=== PATIENT | female | born 1940 | race Caucasian/White ===

== ENCOUNTER → 2017-01-10 | Outpatient (CLI) | payer MEDICARE, OTHER ==
[~2017-01-10] MED LIST: ASPIRIN 81M81 MG/TA2 PO; BETIMOL 0.5% OPH5 ML OU; CALCIUM 6001 TA1 PO; CRANBERRY450 MG PO; EXCEDRIN PM PO; FERROUS SU325 MG/TAB PO; FOLIC ACID 40400 MCG PO; GLUCOSAMINE & C1 CA2 PO; GOOD NEIGHBOR500 M6 PO; LEVOXYL0.025 MG PO; LIPITOR20 MG PO; LOVAZA1 GM PO; MAGIMIN-FORTE250 MG PO; MASON NATURAL1200 MG PO; MULTI VITAMINS1 TAB PO; PRILOSEC 20MG20 MG PO; RESTASIS 60VL; VITAMIN C500 MG PO; ZESTRIL 10MG10 MG PO; ZYRTEC 10MG10 MG PO
== END ==
LOC: MC.RAD 11:40
DX: Z12.31 Encounter for screening mammogram for malignant neoplasm of breast (principal)

== ENCOUNTER 2018-06-26 03:59 | Emergency (ER) | payer MEDICARE, OTHER ==
[~2018-06-26] VITALS: Ht 170.2 cm; Wt 76.4 kg
[~2018-06-26 03:59] MED LIST changes: +CALCIUM 600 PLU1 TAB PO; -CALCIUM 6001 TA1 PO
[2018-06-26 04:02] VITALS: TEMP 97.6
[2018-06-26 04:38] LABS: BASO # 0.1 (0.0-0.2); EOS # 0.3 (0.0-0.7); EOS % 4.6 % (0-4.0); GRAN # 4.5 (1.4-6.5); GRAN % 60.8 % (42.2-75.2); HEMOGLOBIN 14.9 g/dl (12.5-16.0); LYMPH # 1.9 (1.2-3.4); LYMPH % 25.3 % (20.0-51.0); MEAN CELL VOLUME 91 fl (80.0-100.0); MEAN CORPUSCULAR HEMOGLOBIN 31 pg (27.0-31.0); MEAN CORPUSCULAR HGB CONC 34 g/dl (33.0-37.0); MEAN PLATELET VOLUME 10.3 fl (7.4-10.4); MONO # 0.6 (0.1-0.6); PLATELET COUNT 197 K/mm3 (130-400); RED BLOOD COUNT 4.85 M/mm3 (4.10-5.30)
[2018-06-26 04:52] LABS: ALANINE AMINOTRANSFERASE 37 U/L (9-52); ALKALINE PHOSPHATASE 84 U/L (50-136); ANION GAP 11 mmol/L (7-16); AST,SGOT 35 U/L (15-37); BILIRUBIN,TOTAL 0.4 mg/dL (0.0-1.0); BLOOD UREA NITROGEN 16 mg/dL (7-17); CALCIUM 9.7 mg/dL (8.4-10.2); CARBON DIOXIDE 28 mmol/L (22-30); CHLORIDE 100 mmol/L (98-107); CREATININE, serum 0.88 mg/dL (0.52-1.25); GLUCOSE 111 mg/dL (74-106); LIPASE 138 U/L (23-300); POTASSIUM 4.2 mmol/L (3.4-5.0); SODIUM 138 mmol/L (137-145); TOTAL PROTEIN 7.1 gm/dL (6.4-8.2)
[2018-06-26 04:56] LABS: INR 0.9 (0.8-3.0); PROTHROMBIN TIME 9.8 SECONDS (9.7-12.8)
[2018-06-26 05:06] LABS: TROPONIN-I < 0.012 ng/mL (0.000-0.034)
[2018-06-26] MEDS ORDERED: NATURAL MAGNES200 MG (05:47)
[2018-06-26] MEDS ORDERED: TIROSINT25 MC1 PO (05:48)
[2018-06-26] MEDS ORDERED: SINGULAIR 110 MG/TAB PO (05:49)
[2018-06-26] MEDS ORDERED: ZYRTEC5 MG (05:49)
[2018-06-26 06:09] VITALS: BP 116/87
[2018-06-26 10:09] VITALS: PULSE 57
== END 2018-06-26 10:09 | disposition home or self-care (01) ==
LOC: COL.ER 03:59
PROVIDERS: Emergency Medicine
DX: R10.11 Right upper quadrant pain (principal); Z79.82 Long term (current) use of aspirin
CPT/HCPCS: J7030; Q9967

== ENCOUNTER → 2019-01-22 | Outpatient (CLI) | payer MEDICARE, OTHER ==
[~2019-01-22] MED LIST changes: +NATURAL MAGNES200 MG; +SINGULAIR 110 MG/TAB PO; +TIROSINT25 MC1 PO; +ZYRTEC5 MG
== END ==
LOC: MC.RAD 09:06
DX: Z12.31 Encounter for screening mammogram for malignant neoplasm of breast (principal)

== ENCOUNTER → 2019-08-02 | Outpatient (CLI) | payer MEDICARE, OTHER ==
[2019-08-02 09:07] LABS: BASO # 0.1 (0.0-0.2); BASO % 1.2 % (0.0-2.0); EOS # 0.3 (0.0-0.7); EOS % 5.8 % (0-4.0); GRAN % 61.7 % (42.2-75.2); HEMATOCRIT 43.1 % (37.0-47.0); HEMOGLOBIN 13.9 g/dl (12.5-16.0); LYMPH # 1.2 (1.2-3.4); LYMPH % 24.9 % (20.0-51.0); MEAN CELL VOLUME 93 fl (80.0-100.0); MEAN CORPUSCULAR HEMOGLOBIN 30 pg (27.0-31.0); MEAN CORPUSCULAR HGB CONC 32 g/dl (33.0-37.0); MEAN PLATELET VOLUME 10.4 fl (7.4-10.4); MONO # 0.3 (0.1-0.6); MONO % 6.2 % (1.7-9.3); PLATELET COUNT 209 K/mm3 (130-400); RED BLOOD COUNT 4.64 M/mm3 (4.10-5.30); REDCELL DISTRIBUTION WIDTH-CV 13.6 % (11.5-14.5)
[2019-08-02 09:16] LABS: ALBUMIN 4.3 gm/dL (3.5-5.0); BILIRUBIN,TOTAL 0.4 mg/dL (0.0-1.0); CALCIUM 10.1 mg/dL (8.4-10.2); CREATININE, serum 0.88 (0.52-1.25); POTASSIUM 4.1 mmol/L (3.4-5.0); TOTAL PROTEIN 7.1 gm/dL (6.4-8.2)
== END ==
LOC: COL.LAB 08:34
PROVIDERS: Nurse Practitioner
DX: A04.72 Enterocolitis due to Clostridium difficile, not specified as recurrent (principal); N39.0 Urinary tract infection, site not specified

== ENCOUNTER → 2019-08-08 | Outpatient (CLI) | payer MEDICARE, OTHER | LOC: COL.RAD 08:19 → COL.LAB 08:19 → COL.RAD 08:30 | DX: Z01.812 Encounter for preprocedural laboratory examination (principal); A04.72 Enterocolitis due to Clostridium difficile, not specified as recurrent; J84.9 Interstitial pulmonary disease, unspecified; R91.8 Other nonspecific abnormal finding of lung field; R10.9 Unspecified abdominal pain; R19.7 Diarrhea, unspecified | CPT/HCPCS: Q9967 ==

== ENCOUNTER 2020-04-23 15:38 | Outpatient (CLI) | payer MEDICARE, OTHER ==
[~2020-04-23] VITALS: Ht 170.2 cm; Wt 74.6 kg
[2020-04-23 16:23] VITALS: BP 102/52; PULSE 51; TEMP 98.1
== END 2020-04-23 16:45 | disposition home or self-care (01) ==
LOC: EUO 15:38
DX: M81.0 Age-related osteoporosis without current pathological fracture (principal)
CPT/HCPCS: J3489

== ENCOUNTER 2021-02-12 08:30 | Day surgery (SDC) | payer MEDICARE, OTHER ==
[2021-02-12] VITALS (12 sets, daily range): BP systolic 119–150; BP diastolic 48–78; PULSE 48–72; TEMP 97.8
[~2021-02-12] VITALS: Ht 170.3 cm; Wt 69.4 kg
[2021-02-12] MEDS ORDERED: VITAMIN D31000 I1 PO (08:47)
[2021-02-12] MEDS ORDERED: NATURAL POTASS595 MG PO (08:47)
[2021-02-12] MEDS ORDERED: MULTIPLE VITAMI1 TA5 PO (08:48)
[2021-02-12] MEDS ORDERED: 00186-0372-20 IH (08:49)
[2021-02-12] MEDS ORDERED: FLONASE NASAL S16 GM NS (08:50)
[2021-02-12] MEDS ORDERED: TYLENOL PM EXTR1 TA1 PO (08:51)
[2021-02-12 09:13] LABS: HEMATOCRIT 38.8 % (37.0-47.0); HEMOGLOBIN 12.9 g/dl (12.5-16.0); MEAN CELL VOLUME 90 fl (80.0-100.0); MEAN CORPUSCULAR HEMOGLOBIN 30 pg (27.0-31.0); MEAN CORPUSCULAR HGB CONC 33 g/dl (33.0-37.0); PLATELET COUNT 218 K/mm3 (130-400); RED BLOOD COUNT 4.29 M/mm3 (4.10-5.30); REDCELL DISTRIBUTION WIDTH-CV 14.5 % (11.5-14.5)
[2021-02-12 09:20] LABS: PROTHROMBIN TIME 10.9 SECONDS (9.7-12.8)
[2021-02-12 09:23] LABS: CALCIUM 9.7 mg/dL (8.4-10.2); CREATININE, serum 1.05 (0.52-1.25); PARTIAL THROMBOPLASTIN TIME 29.6 SECONDS (26.0-37.0); POTASSIUM 4.3 mmol/L (3.4-5.0)
--- NOTE | 2021-02-12 12:46 | NUR ---
SEE MERGE DOCUMENTATION FOR MEDICATION ADMINISTRATION TIMES AND INTRA/POST PROCEDURE SEDATION ASSESSMENTS. PLAN FOR RIGHT FEMORAL ACCESS.
--- NOTE | 2021-02-12 13:30 | NUR ---
Report from Mary Jane RN. Transferred from cath lab tech by bed. Alert and oriented, denies pain and needs at this time. Right groin site CD&I, soft to palpation and good pedal pulses noted. VSS. bedside
[2021-02-12] MEDS ORDERED: LIPITOR20 MG PO (14:58)
[2021-02-12] MEDS ORDERED: IMDUR 30MG30 MG/TAB PO (14:59)
--- NOTE | 2021-02-12 18:08 | NUR ---
INT discontiued intact. Right groin site CD&I after ambulating to bathroom. Discharge instructions given.
--- NOTE | 2021-02-12 18:25 | NUR ---
Transferred to private car by tamara
== END 2021-02-12 18:25 | disposition home or self-care (01) ==
LOC: COL.CAR 08:30
PROVIDERS: Internal Medicine Cardiovascular Disease
DX: I25.10 Atherosclerotic heart disease of native coronary artery without angina pectoris (principal); E78.5 Hyperlipidemia, unspecified; I77.1 Stricture of artery; Z88.0 Allergy status to penicillin; Z20.822 Contact with and (suspected) exposure to COVID-19; Z95.1 Presence of aortocoronary bypass graft; Z88.2 Allergy status to sulfonamides; Z88.8 Allergy status to other drugs, medicaments and biological substances
CPT/HCPCS: C1760; C1769; C1887; C1894; J0153; J1644; J2250; J3010; Q9967

== ENCOUNTER → 2021-03-11 | Outpatient (CLI) | payer MEDICARE, OTHER ==
[~2021-03-11] MED LIST changes: +00186-0372-20 IH; +FLONASE NASAL S16 GM NS; +IMDUR 30MG30 MG/TAB PO; +MULTIPLE VITAMI1 TA5 PO; +NATURAL POTASS595 MG PO; +TYLENOL PM EXTR1 TA1 PO; +VITAMIN D31000 I1 PO
== END ==
LOC: MC.RAD 11:00
DX: Z12.31 Encounter for screening mammogram for malignant neoplasm of breast (principal)

== ENCOUNTER → 2021-05-01 | Outpatient (CLI) | payer MEDICARE, OTHER | LOC: COL.RAD 08:02 | DX: D32.0 Benign neoplasm of cerebral meninges (principal); J32.9 Chronic sinusitis, unspecified; G93.89 Other specified disorders of brain | CPT/HCPCS: A9585 ==

== ENCOUNTER 2022-01-01 14:04 | Outpatient (CLI) | payer MEDICARE, OTHER ==
[~2022-01-01] VITALS: Ht 170.2 cm; Wt 68.6 kg
[2022-01-01 15:10] VITALS: BP 109/50; PULSE 64; TEMP 98.7
== END 2022-01-01 17:22 | disposition home or self-care (01) ==
LOC: EUO 14:04
DX: M81.0 Age-related osteoporosis without current pathological fracture (principal)
CPT/HCPCS: J3489

== ENCOUNTER → 2023-03-02 | Outpatient (CLI) | payer MEDICARE, OTHER | LOC: MC.RAD 11:00 | DX: Z12.31 Encounter for screening mammogram for malignant neoplasm of breast (principal); N63.11 Unspecified lump in the right breast, upper outer quadrant ==

== ENCOUNTER → 2023-03-31 | Outpatient (CLI) | payer MEDICARE, OTHER ==
[~2023-03-31] MED LIST changes: +CITRACAL + D CA1 TAB; +CLARITIN 1010 MG/TAB PO; +LOMOTIL 0.025 M1 TAB PO; +MAGNESIUM500 MG PO; +NATURAL FISH1200 MG; +NORCO 325 MG-51 TAB PO; +PHARMASSURE ZIN50 MG PO; +PREDNISONE20 MG PO; +PRIL40 PO; +SYNTHROID0.05 MG/TA PO
== END ==
LOC: MC.RAD 12:50 → COL.RAD 13:00
DX: C50.411 Malignant neoplasm of upper-outer quadrant of right female breast (principal); Z17.0 Estrogen receptor positive status [ER+]
CPT/HCPCS: A9520

== ENCOUNTER 2023-04-01 07:37 | Observation (INO) | payer MEDICARE, OTHER ==
[~2023-04-01] VITALS: Ht 167.6 cm; Wt 75.9 kg
[2023-04-01] VITALS (16 sets, daily range): BP systolic 101–167; BP diastolic 46–85; PULSE 62–97; TEMP 97.7–98.2
[~2023-04-01 07:37] MED LIST changes: -CITRACAL + D CA1 TAB; -CLARITIN 1010 MG/TAB PO; -LOMOTIL 0.025 M1 TAB PO; -MAGNESIUM500 MG PO; -NATURAL FISH1200 MG; -NORCO 325 MG-51 TAB PO; -PHARMASSURE ZIN50 MG PO; -PREDNISONE20 MG PO; -PRIL40 PO; -SYNTHROID0.05 MG/TA PO
[2023-04-01] MEDS ORDERED: LIPITOR20 MG PO (08:50)
[2023-04-01] MEDS ORDERED: SYNTHROID0.05 MG/TA PO (08:50)
[2023-04-01] MEDS ORDERED: PRIL40 PO (08:51)
[2023-04-01] MEDS ORDERED: PREDNISONE20 MG PO (08:52)
[2023-04-01] MEDS ORDERED: LOMOTIL 0.025 M1 TAB PO (08:52)
[2023-04-01] MEDS ORDERED: MAGNESIUM500 MG PO (08:53)
[2023-04-01] MEDS ORDERED: PHARMASSURE ZIN50 MG PO (08:54)
[2023-04-01] MEDS ORDERED: CITRACAL + D CA1 TAB (08:57)
[2023-04-01] MEDS ORDERED: NATURAL FISH1200 MG (08:59)
[2023-04-01] MEDS ORDERED: CLARITIN 1010 MG/TAB PO (09:01)
--- NOTE | 2023-04-01 13:05 | NUR ---
Patient to room 345 from the PACU. Patient A&Ox4. VSS. 2L NC O2. IV CDI, fluids by gravity. Denies pain and discomfort. RT side chest incision site dressing CDI. [place] drain intact to bulb suction. Post op VS monitored. Nurse oriented the patient to location, call light and room. Family at the bedside and assisting with ordering lunch. SCD bilateral legs. No further needs expressed. Call light within reach
--- NOTE | 2023-04-01 13:56 | NUR ---
Nurse emptying jarvis drain and unable to remove output due to clot. Patient also had blood outside incision site and on gown. Nurse reenforced with ABD pad and foam tape. SB Rodriguez PACU notified and she called Dr Vides. This nurse talked with Dr. Vides and notified that the patient will be going back down to the OR. Will continue to monitor
--- NOTE | 2023-04-01 17:44 | NUR ---
Patient to room 345 from the PACU. A&Ox4. VSS 2L NC O2. IV CDI, fluids by gravity. RT chest incision site CDI. [place] drain intact. Denies pain and discomfort. Nurse oriented the patient to location, call light and room. Family at the bedside. No further needs expressed. Call light within reach
[2023-04-01 18:59] LABS: HEMOGLOBIN 10.9 g/dl (12.5-16.0)
[2023-04-01 19:01] LABS: HEMATOCRIT 32.4 % (37.0-47.0)
--- NOTE | 2023-04-01 21:42 | NUR ---
Patient A/Ox4, head to toe assessment done, see shift assessmeny, dressing to right breast CDI, with BEVERLY draining serousanguinous fluid, denies pain at this time, with IV LR running via gravity infusing well on left forearm, denies nausea, denies further needs, call light and personal items within reach, will continue to monitor.
[2023-04-02] VITALS (8 sets, daily range): BP systolic 98–127; BP diastolic 30–49; PULSE 72–93; TEMP 97.8–98.7
--- NOTE | 2023-04-02 00:15 | NUR ---
IV to INT at this time, patient tolerating fluids well.
[2023-04-02 06:53] LABS: HEMATOCRIT 26.4 % (37.0-47.0); HEMOGLOBIN 8.7 g/dl (12.5-16.0)
[2023-04-02] MEDS ORDERED: NORCO 325 MG-51 TAB PO (07:50)
--- NOTE | 2023-04-02 08:35 | NUR ---
Patient resting in bed. has rounded. Plan of care reviewed. Tylenol offered, but denies needing at this time. Right chest dressing intact, BEVERLY drain to bulb compression. Int. Scds ble. She tolerated breakfast without nausea. Will monitor.
--- NOTE | 2023-04-02 13:39 | NUR ---
Section Gang Worker rounds: Patient accepted Section Gang Worker visit. 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 Patient had surgery to remove a breast. Her hemoglobin was not where it should be this morning, but she is hoping that will not keep her from being discharged this afternoon. Patient spoke of her grandchildren and great-grandchildren. Crimper Assembler arrived. Section Gang Worker prayed for Patient and for the possibility of going home. Section Gang Worker left so that Crimper Assembler could meet with Patient.
[2023-04-02 14:20] LABS: HEMATOCRIT 26.1 % (37.0-47.0); HEMOGLOBIN 8.4 g/dl (12.5-16.0)
--- NOTE | 2023-04-02 16:14 | NUR ---
SW met with pt for intake. Pt reported living in [place] with her Mario and confirmed number as ([phone] (home) and [phone] (cell). Pt denied DME at home and/or O2. Pt reports having basement stairs but not using them. Pt reports PCP as Dr. Trotter and pharmacy is [facility] with no issues. Pt has DPOA with Mario, spouse as designee. D/C plan home with
--- NOTE | 2023-04-02 16:45 | NUR ---
Patient ready for discharge. called and orders obtained. Patient given discharge education. Reviewed with her and her family BEVERLY drain cares. We discussed incision cares and dressing removal in 48 hours. Signs and symptoms of infection reviewed. Diet and activity discussed, as well as medication list and using over the counter medications for pain and constipation as needed. Patient ambulated out with all belongings. Her family taking her home. Denies questions or concerns.
== END 2023-04-02 17:09 | disposition home or self-care (01) ==
LOC: SDCO 07:37 → SURG 07:37 → SDCO 08:00 → SURG 13:28 → SDCO 16:43 → SURG 16:44 → SDCO 04-02 17:09 → SURG 04-02 17:09
PROVIDERS: ADMIT Surgery
DX: C50.411 Malignant neoplasm of upper-outer quadrant of right female breast (principal); Z17.0 Estrogen receptor positive status [ER+]; L76.32 Postprocedural hematoma of skin and subcutaneous tissue following other procedure; D62 Acute posthemorrhagic anemia; Z95.1 Presence of aortocoronary bypass graft
CPT/HCPCS: OP; G0378; J0690; J1100; J1885; J2250; J2405; J2704; J2795; J3010; J7120

== ENCOUNTER 2024-02-20 12:48 | Day surgery (SDC) | payer MEDICARE, OTHER ==
[~2024-02-20] VITALS: Ht 170.2 cm; Wt 70.6 kg
[~2024-02-20 12:48] MED LIST changes: +CITRACAL + D CA1 TAB; +CLARITIN 1010 MG/TAB PO; +LOMOTIL 0.025 M1 TAB PO; +LR 1,000 ML IV SCH; +MAGNESIUM500 MG PO; +NATURAL FISH1200 MG; +NORCO 325 MG-51 TAB PO; +Ondansetron 4 MG/2 ML VIAL IV PRN; +PHARMASSURE ZIN50 MG PO; +PREDNISONE20 MG PO; +PRIL40 PO; +SYNTHROID0.05 MG/TA PO; +VOLTAREN GEL 1%1 TU TP
[2024-02-20 13:45] VITALS: BP 150/70; PULSE 65; TEMP 98
[2024-02-20] MEDS ORDERED: ZYRTEC 10MG10 MG PO (13:55)
[2024-02-20] MEDS ORDERED: ARIMIDEX1 MG PO (13:56)
[2024-02-20] MEDS ORDERED: NATURE'S BLEND500 M1 PO (13:56)
[2024-02-20] MEDS ORDERED: Ondansetron 4 MG/2 ML VIAL ONE (13:57)
[2024-02-20 14:39] VITALS: TEMP 97.5
[2024-02-20 14:55] VITALS: BP 107/56; PULSE 61
[2024-02-20 15:15] VITALS: BP 115/66; PULSE 62
[2024-02-20 15:30] VITALS: BP 122/78; PULSE 63
--- NOTE | 2024-02-20 16:54 | NUR ---
1455 PATIENT RETURNS TO [facility] VIA CART. PT AWAKE AND ALERT. RESPIRATIONS UNLABORED. AMBULATED TO RECLINER CHAIR WITH 2:1 SBA. PT DENIES NAUSEA OR ABDOMINAL PAIN. HOOKED UP TO MONITOR AND VS OBTAINED. CALL LIGHT AT SIDE AND PRESENT. 1500 PATIENT TOLERATING WATER AND CHEESE, CRACKERS WITHOUT NAUSEA OR DIFFICULTY SWALLOWING (EGD ONLY). 1530 IN ROOM SPEAKING WITH PATIENT. 1535 D/C INSTRUCTIONS REVIEWED WITH PATIENT. PT VERBALIZED UNDERSTANDING AND A COPY OF INSTRUCTIONS PROVIDED IN D/C FOLDER. 1545 PATIENT DRESSES SELF. 1555 PATIENT DISCHARGED FROM UNIT VIA W/C TO A PERSONAL VEHICLE. PT LEFT HOSPITAL IN STABLE CONDITION.
== END 2024-02-20 15:55 | disposition home or self-care (01) ==
LOC: SDCO 12:48
DX: K29.30 Chronic superficial gastritis without bleeding (principal); D12.3 Benign neoplasm of transverse colon; D50.9 Iron deficiency anemia, unspecified; R13.10 Dysphagia, unspecified; R19.5 Other fecal abnormalities; K44.9 Diaphragmatic hernia without obstruction or gangrene; K57.30 Diverticulosis of large intestine without perforation or abscess without bleeding; Z79.899 Other long term (current) drug therapy
CPT/HCPCS: J2405; J2704; J7120

== ENCOUNTER → 2024-04-18 | Outpatient (CLI) | payer MEDICARE, OTHER ==
[~2024-04-18] MED LIST changes: +ARIMIDEX1 MG PO; -LR 1,000 ML IV SCH; +NATURE'S BLEND500 M1 PO; -Ondansetron 4 MG/2 ML VIAL IV PRN
== END ==
LOC: MC.RAD 08:30
DX: Z12.31 Encounter for screening mammogram for malignant neoplasm of breast (principal)

== ENCOUNTER 2024-07-03 20:48 | Emergency (ER) | payer MEDICARE, OTHER ==
[~2024-07-03] VITALS: Ht 170.2 cm; Wt 68.2 kg
[2024-07-03 20:58] VITALS: BP 149/61; TEMP 98.4
[2024-07-03 21:55] VITALS: PULSE 70
== END 2024-07-03 21:56 | disposition home or self-care (01) ==
LOC: COL.ER 20:48
DX: S01.81XA Laceration without foreign body of other part of head, initial encounter (principal); W22.09XA Striking against other stationary object, initial encounter